=== PATIENT | male | born 1965 | race Caucasian/White ===

== ENCOUNTER 2017-08-04 14:03 | Outpatient (CLI) | payer OTHER ==
[2017-08-04 15:13] LABS: Hemoglobin 16.6 g/dL (14.0-18.0); Mean Corpuscular HGB CONC 33.6 g/dL (32.0-36.0); Mean Corpuscular Hemoglobin 30.9 pg (27.0-31.0); Mean Platelet Volume 8.4 fL (7.4-10.4); Platelet Count 168 thou/uL (130-400); Red Blood Cell (RBC) Count 5.37 mill/uL (4.70-6.10); White Blood Cell (WBC) Count 7.1 thou/uL (4.8-10.8)
--- NOTE | 2017-08-04 15:13 | RAD ---
CHEST TWO VIEWS: History: Chest pain. FINDINGS: No comparison. Cardiac silhouette and pulmonary vasculature are unremarkable. Linear atelectasis proj ects over the left base. No lobar consolidation or evidence of pneumothorax. IMPRESSION: No active cardiopulmonary abnormalities are demonstrated. POS: [facility]
[2017-08-04 15:20] LABS: PTT 28.6 SEC (22.9-36.1); Prothrombin Time 13.6 SEC (12.0-14.7)
[2017-08-04 15:29] LABS: ALT (SGPT) 24 U/L (8-55); AST (SGOT) 14 U/L (5-34); Alkaline Phosphatase 64 U/L (40-150); Anion Gap 11 mmol/L (10-20); BUN (Urea Nitrogen) 26 mg/dL (8.4-25.7); Bilirubin, Total 0.6 mg/dL (0.2-1.2); Calc. Creatinine Clearance 0 mL/min (70-130); Calcium 9.3 mg/dL (7.8-10.44); Carbon Dioxide 25 mmol/L (22-29); Chloride 108 mmol/L (98-107); Estimated GFR-MDRD 80; Globulin 2.5 g/dL (2.4-3.5); Glucose 149 mg/dL (70-105); Potassium 4.6 mmol/L (3.5-5.1); Protein, Total 6.5 g/dL (6.0-8.3); Sodium 139 mmol/L (136-145)
--- NOTE | 2017-08-07 13:24 | EKG ---
Test Reason : Blood Pressure : / mmHG Vent. Rate : 071 BPM Atrial Rate : 071 BPM P-R Int : 198 ms QRS Dur : 096 ms QT Int : 360 ms P-R-T Axes : 042 058 -07 degrees QTc Int : 391 ms Normal sinus rhythm Cannot rule out Anterior infarct (cited on or before 12-JUN-2015) T wave abnormality, consider inferior ischemia Abnormal ECG Confirmed by LEANNA TERRAZAS ([id number]) on 08/07/2017 1:24:27 PM Referred By: MIKIE Confirmed By:LEANNA TERRAZAS
== END 2017-08-04 14:04 | disposition home or self-care (01) ==
LOC: LABBT 14:03
PROVIDERS: ATTEND Internal Medicine Cardiovascular Disease
DX: Z01.818 Encounter for other preprocedural examination (principal); I34.0 Nonrheumatic mitral (valve) insufficiency
CPT/HCPCS: 71046; 80053; 85027; 85610; 85730; 93005; 93010

== ENCOUNTER → 2017-08-15 | Day surgery (SDC) | payer OTHER ==
[2017-08-04 14:29] VITALS: BMI 33.0
[~2017-08-15] MED LIST: Fentanyl 100 MCG/2 ML VIAL ONE; Heparin 10,000 UNITS/1 ML VIAL ONE; Iopamidol 370 76% 100 ML VIAL ONE; Iopamidol 370 76% 50 ML VIAL FS ONE; Lidocaine 1% (PF) 30 ML VIAL ONE; Midazolam HCl 2 mg/2 ml Vial ONE; Protamine Sulfate 50 MG/5 ML VIAL ONE
== END ==
LOC: CCL 06:18
PROVIDERS: ATTEND Internal Medicine Cardiovascular Disease
DX: I34.0 Nonrheumatic mitral (valve) insufficiency (principal); I34.1 Nonrheumatic mitral (valve) prolapse; I10 Essential (primary) hypertension; E78.00 Pure hypercholesterolemia, unspecified; E11.9 Type 2 diabetes mellitus without complications; Z79.84 Long term (current) use of oral hypoglycemic drugs; Z79.899 Other long term (current) drug therapy
CPT/HCPCS: 85347; 93460; 99152; C1769; J1644; J2001; J2250; J2720; J3010

== ENCOUNTER 2017-08-22 20:04 | Emergency (ER) | payer OTHER, SELFPAY ==
--- NOTE | 2017-08-22 21:00 | RAD ---
CHEST ONE VIEW: 08/22/17 HISTORY: Chest pain. COMPARISON: None. FINDINGS: Heart size is upper limits of normal. No focal air space consolidation, pneumothorax or effusion. No acute osseous abnormality. IMPRESSION: Cardiac size upper limits of normal. POS: [facility]
[2017-08-22 21:08] LABS: #Basophils 0.1 thou/uL (0.0-0.2); #Eosinphils 0.4 thou/uL (0.0-0.7); #Lymphocytes 1.6 thou/uL (1.20-3.40); #Monocytes 0.9 thou/uL (0.11-0.59); #Neutrophils 5.8 thou/uL (1.40-6.50); %Basophils 0.8 % (0.0-1.0); %Eosinophils 4.9 % (0.0-10.0); %Lymphocytes 17.8 % (21.0-51.0); %Monocytes 10.5 % (0.0-10.0); Hemoglobin 16.7 g/dL (14.0-18.0); Mean Corpuscular HGB CONC 33.6 g/dL (32.0-36.0); Mean Corpuscular Hemoglobin 30.8 pg (27.0-31.0); Mean Corpuscular Volume 91.5 fl (80.0-94.0); Mean Platelet Volume 8.2 fL (7.4-10.4); Platelet Count 159 thou/uL (130-400); RBC Distribution Width 12.1 % (11.5-14.5); Red Blood Cell (RBC) Count 5.43 mill/uL (4.70-6.10); White Blood Cell (WBC) Count 8.8 thou/uL (4.8-10.8)
[2017-08-22 21:16] LABS: PTT 24.1 SEC (22.9-36.1); Prothrombin Time 13.4 SEC (12.0-14.7)
[2017-08-22 21:24] LABS: ALT (SGPT) 35 U/L (8-55); AST (SGOT) 25 U/L (5-34); Albumin 4.1 g/dL (3.5-5.0); Alkaline Phosphatase 67 U/L (40-150); Anion Gap 8 mmol/L (10-20); BUN (Urea Nitrogen) 24 mg/dL (8.4-25.7); Bilirubin, Total 0.6 mg/dL (0.2-1.2); CK (CPK) 85 U/L (30-200); Calc. Creatinine Clearance 0 mL/min (70-130); Calcium 9.1 mg/dL (7.8-10.44); Carbon Dioxide 26 mmol/L (22-29); Chloride 106 mmol/L (98-107); Estimated GFR-MDRD Greater than 90; Globulin 2.9 g/dL (2.4-3.5); Glucose 110 mg/dL (70-105); Potassium 4.1 mmol/L (3.5-5.1); Sodium 136 mmol/L (136-145)
[2017-08-22 21:28] LABS: CKMB 1.8 ng/mL (0-6.6); Troponin I Less than 0.010 ng/mL (< 0.028)
== END 2017-08-22 22:33 | disposition home or self-care (01) ==
LOC: ERS 20:04
DX: R55 Syncope and collapse (principal); Z79.84 Long term (current) use of oral hypoglycemic drugs; Z79.899 Other long term (current) drug therapy
CPT/HCPCS: 71045; 80053; 82553; 83880; 84484; 85025; 85610; 85730; 93005

== ENCOUNTER 2017-11-13 11:15 | Inpatient (IN) | payer OTHER ==
[2017-11-13 12:49] LABS: Hemoglobin 16.1 g/dL (14.0-18.0); Mean Corpuscular HGB CONC 32.6 g/dL (32.0-36.0); Mean Corpuscular Hemoglobin 30.2 pg (27.0-31.0); Mean Corpuscular Volume 92.6 fL (78.0-98.0); Mean Platelet Volume 8.5 fL (7.4-10.4); Platelet Count 152 thou/uL (130-400); RBC Distribution Width 11.9 % (11.5-14.5); Red Blood Cell (RBC) Count 5.33 mill/uL (4.70-6.10); White Blood Cell (WBC) Count 6.8 thou/uL (4.8-10.8)
[2017-11-13 12:58] LABS: PTT 28.2 SEC (22.9-36.1); Prothrombin Time 13.1 SEC (12.0-14.7)
[2017-11-13 13:06] LABS: Anion Gap 14 mmol/L (10-20); BUN (Urea Nitrogen) 26 mg/dL (8.4-25.7); Calc. Creatinine Clearance 0 mL/min (70-130); Calcium 9.7 mg/dL (7.8-10.44); Carbon Dioxide 23 mmol/L (22-29); Chloride 107 mmol/L (98-107); Estimated GFR-MDRD 70; Glucose 205 mg/dL (70-105); Potassium 4.3 mmol/L (3.5-5.1); Sodium 140 mmol/L (136-145)
[2017-11-14] MEDS ORDERED: Vancomycin HCl 1.5 GM in Sodium Chloride 0.9% 250 ML 300 ML IVPB SCH (06:45)
[2017-11-14] MEDS ORDERED: Heparin 10,000 UNITS/1 ML VIAL 30,000 UNITS in Sodium Chloride 0.9% 1,000 ML FS SCH (07:15)
[2017-11-14] MEDS ORDERED: Potassium Chloride 60 MEQ/30 ML VIAL ONE (10:04)
[2017-11-14] MEDS ORDERED: Thrombin 5000 UNITS/5 ML VIAL ONE (10:04)
[2017-11-14] MEDS ORDERED: Nitroglycerin 50 MG/250 ML BOT ONE (10:04)
[2017-11-14] MEDS ORDERED: Protamine Sulfate 250 MG/25 ML VIAL ONE (10:04)
[2017-11-14] MEDS ORDERED: Sodium Bicarb 50 MEQ/50 ML VIAL ONE (10:04)
[2017-11-14] MEDS ORDERED: Norepinephrine 4 MG/4 ML VIAL ONE (10:04)
[2017-11-14] MEDS ORDERED: PROPOFOL 200 MG/20 ML VIAL ONE (10:04)
[2017-11-14] MEDS ORDERED: Mannitol 12.5 GM/50 ML ONE (10:04)
[2017-11-14] MEDS ORDERED: Vecuronium 10 MG VIAL ONE (10:04)
[2017-11-14] MEDS ORDERED: Calcium Chloride 1 GM/10 ML Abboject SYRINGE ONE (10:04)
[2017-11-14] MEDS ORDERED: Heparin 30,000 units/30 ml VIAL ONE (10:04)
[2017-11-14] MEDS ORDERED: PHENYLEPHRINE-NS 100 MCG/ML 10 ML SYRINGE ONE (10:04)
[2017-11-14] MEDS ORDERED: Lidocaine 2% PF 100 mg/5 ml Syringe ONE (10:04)
[2017-11-14] MEDS ORDERED: Aminocaproic Acid 5 GM/20 ML VIAL ONE (10:04)
[2017-11-14] MEDS ORDERED: ePHEDrine/0.9% NaCl/PF SYRINGE 50 mg/10 ml ONE (10:04)
[2017-11-14] MEDS ORDERED: Esmolol 100 MG/10 ML VIAL ONE (10:04)
[2017-11-14] MEDS ORDERED: Magnesium 5 GM/10 ML VIAL ONE (10:04)
[2017-11-14] MEDS ORDERED: Amiodarone HCl 450 MG, Admixture Fee 1 EACH in Dextrose 5% in Water 250 ML IVPB ONE (11:30)
[2017-11-14] MEDS ORDERED: Fentanyl 100 MCG/2 ML VIAL SLOW IVP PRN ×2 (12:23)
[2017-11-14] MEDS ORDERED: Bisacodyl 10 MG SUPP PR PRN (12:23)
[2017-11-14] MEDS ORDERED: Bisacodyl 5 MG TAB PO PRN (12:23)
[2017-11-14] MEDS ORDERED: Acetaminophen 325 MG TAB PO PRN (12:23)
[2017-11-14] MEDS ORDERED: hydrALAZINE 20 MG/ML VIAL SLOW IVP PRN (12:23)
[2017-11-14] MEDS ORDERED: Ondansetron HCl/PF 4 MG/2 ML Vial IVP PRN (12:23)
[2017-11-14] MEDS ORDERED: Mag-Al 1200 mg/1200 mg/30 ML UDCUP PO PRN (12:23)
[2017-11-14] MEDS ORDERED: Hetastarch 6% 500 ML 500 ML IVPB PRN (12:23)
[2017-11-14] MEDS ORDERED: Promethazine HCl 25 MG/ML VIAL IM PRN (12:23)
[2017-11-14] MEDS ORDERED: Nitroglycerin 50 MG/250 ML BOT 250 ML IVPB PRN (12:23)
[2017-11-14] MEDS ORDERED: Guaifenesin DM 100-10/5 ML UDCUP PO PRN (12:23)
[2017-11-14] MEDS ORDERED: Post-Op Insulin Drip Protocol IVPB ONE (12:23)
[2017-11-14] MEDS ORDERED: Norepinephrine 8 MG/0.9% NS 250 ML IVPB PRN (12:23)
[2017-11-14] MEDS ORDERED: Amiodarone In Dextrose 200 ML IVPB SCH (12:30)
[2017-11-14] MEDS ORDERED: Dextrose 50% Abboject 50 ML SYRINGE SLOW IVP PRN (12:33)
[2017-11-14] MEDS ORDERED: Dextrose 5% in Water 1,000 ML IV PRN (12:33)
[2017-11-14] MEDS ORDERED: Magnesium Sulfate 2 GM in Sodium Chloride 0.9% 100 ML IVPB SCH (12:45)
[2017-11-14 12:53] LABS: Actual Bicarbonate (HCO3a) 22.8 mEq/L (22-28); Base Excess (BEa) -2.7 mEq/L (-2.0 to +3.0); CO2 Tension 41.9 mmHg (35.0-45.0); Hemoglobin (Hb) 15.1 g/dL (14.0-18.0); pH, Arterial 7.35 (7.35-7.45)
[2017-11-14 12:54] LABS: Hemoglobin 14.9 g/dL (14.0-18.0); Mean Corpuscular HGB CONC 33.9 g/dL (32.0-36.0); Mean Corpuscular Hemoglobin 31.3 pg (27.0-31.0); Mean Corpuscular Volume 92.3 fL (78.0-98.0); Platelet Count 143 thou/uL (130-400); RBC Distribution Width 11.9 % (11.5-14.5); Red Blood Cell (RBC) Count 4.75 mill/uL (4.70-6.10); White Blood Cell (WBC) Count 27.9 thou/uL (4.8-10.8)
[2017-11-14 12:54] LABS: ALV-art Gradient 262.425 (0-20); Puncture Site ART LINE
[2017-11-14 12:55] LABS: INR-International Normal Ratio 1.2; PTT 29.1 SEC (22.9-36.1); Prothrombin Time 15.7 SEC (12.0-14.7)
[2017-11-14] MEDS: D5 1/2 NS w/20 mEq KCL 1,000 ML IV SCH (13:06)
[2017-11-14 13:07] LABS: Anion Gap 11 mmol/L (10-20); BUN (Urea Nitrogen) 24 mg/dL (8.4-25.7); Calc. Creatinine Clearance 142 mL/min (70-130); Calcium 6.9 mg/dL (7.8-10.44); Carbon Dioxide 23 mmol/L (22-29); Chloride 114 mmol/L (98-107); Estimated GFR-MDRD 89; Glucose 160 mg/dL (70-105); Potassium 4.3 mmol/L (3.5-5.1); Sodium 144 mmol/L (136-145)
[2017-11-14] MEDS: Clindamycin/D5W 900 MG in Premix Bag 1 BAG IVPB SCH ×2 (13:14→19:23)
[2017-11-14 13:15] LABS: Band 13 % (5-11); Eosinophils 1 % (0-10); Lymphocytes 4 % (21-51); MDiff Complete? YES; Monocytes 3 % (0-10); Neutrophil 77 % (42-75); PLT Morphology Comment Appears Adequate; RBC Morphology Normal; Reactive Lymphocytes 2 % (0-10)
--- NOTE | 2017-11-14 13:31 | OP ---
DATE OF OPERATION: 11/14/2017 PREOPERATIVE DIAGNOSIS: Severe mitral regurgitation. POSTOPERATIVE DIAGNOSIS: Severe mitral regurgitation. PROCEDURES: 1. Mitral valve repair with a quadrangular resection and #34 Borges mitral ring. 2. Ligation of left atrial appendage. SURGEON: Dr. Chi Doe and Dr. Ketan Ortiz. ANESTHESIA: General endotracheal - Dr. John Elliott. PUMP TIME: 99 minutes. CROSS-CLAMP TIME: 73 minutes. LOW CORE TEMP: 32-degree Celsius. BAG ADJUSTER: Maryuri Yan. DRAINS: 24-Urdu chest tubes x2. DRIPS: Levophed at 5 mcg/kg per minute, amiodarone, and insulin. TRANSFUSIONS: None. DESCRIPTION OF PROCEDURE: After consent was obtained, the patient was brought to the operating room and placed in the supine position on the operating room table. Appropriate anesthetic monitor was pl aced and general endotracheal anesthesia induced. Chest, abdomen, and legs were prepped and draped i n usual sterile fashion. Median sternotomy was performed. Pericardium was incised. Pericardial sta y sutures were placed. The patient was systemically heparinized. Atrial and bicaval cannulation was performed. After adequate heparinization, retrograde prime was performed. The patient was placed o n cardiopulmonary bypass. Caval tapes were placed and tightened. A left ventricular sump drain was placed in the right superior pulmonary vein. Aortic cross-clamp was applied and antegrade sanguinous cardioplegic arrest obtained. One liter of antegrade cold cardioplegia was given. Topical cold jase ution was used. Carbon dioxide was infused in the pericardial wall throughout the open portion of the procedure. Waterston's groove was developed. Left atriotomy was then performed and extended underneath the supe rior and inferior vena cava. Rich mitral retractor was placed and retraction performed to inspec t the mitral valve. On inspection, there was a flail P2 chordee with a patulous P2 segment. The ant erior leaflet was intact. P1 and P3 were intact. The left atrial appendage was then ligated with a 4-0 Prolene pursestring from the inside of the left atrium. Trigonal sutures were placed and the anterior leaflet measured at 34. Quadrangular resection was then performed, resecting the P2 segment. The annulus was reapproximated with a pledgeted 4-0 Prolene suture. Unpledgeted 2-0 Ethibond sutures were placed around the annulus . These were then passed through the ring and the ring was secured. Once the ring was secured, the leaflet edges were brought back together and reapproximated with running 5-0 Prolene suture. Valve w as tested and there was a small central jet at the leaflet edge around the area of the quadrangular r esection. There was no large leaflet non-apposition. Atriotomy was closed in a running fashion with 4-0 Prolene suture in a dual layer fashion. De-airing maneuvers were then performed. The patient w as placed in Trendelenburg position and cross-clamp removed. The patient was warmed and weaned from cardiopulmonary bypass. Atrial and ventricular pacing wires were placed. Once the temperature was g reater than 36.5, good hemodynamics had been obtained and the patient was weaned and bypass was disco ntinued. The valve was inspected with ANAY and found to coapt throughout its length. There was a sma ll central jet resulting in mild mitral regurgitation. Protamine was administered. Decannulation wa s performed and pursestring sutures secured. The aortic cannulation site was reinforced with 4-0 Pro lefty pledgeted suture. The antegrade cardioplegia needle was removed and its pursestring sutures sec ured. The left ventricular sump drain was removed and its pursestring sutures secured. After adequa te hemostasis had been obtained, 24-Urdu chest tubes were placed and secured to the skin. The ster num was treated with vancomycin paste. Hemostasis was adequate and the sternum was closed with #7 wi re. Sternum was treated with platelet-rich plasma and wires twisted. Wounds irrigated, treated with platelet-poor plasma. During closure of the subcutaneous tissue, the patient's ST segments elevated . The patient then fibrillated. The sternotomy was reopened. The patient was defibrillated. The p atient was given lidocaine and amiodarone bolus dose. The patient converted back into sinus rhythm a nd was paced for a short period of time prior to discontinuing the pacemaker. Amiodarone drip was st arted. There were no further rhythm disturbances. This was attributed to an air bolus. Myocardium was inspected and there was no ischemic myocardium. Using ANAY, again the ventricle and mitral valve repair were inspected and were as per previously noted. After approximately an hour in the operating room of the sternum opened, we elected to reclose. Ster num was reclosed with #7 wire. Wounds were irrigated, treated with platelet-rich plasma and platelet -poor plasma, and closed in layers. Dermabond was applied to the skin. The patient was transferred to the intensive care unit in stable condition. Needle, sponge, and instrument counts were all repor saritha correct at the end of the procedure.
--- NOTE | 2017-11-14 14:36 | RAD ---
PORTABLE CHEST 1 VIEW: Date: 11/14/17 Time: 1150 hours HISTORY: Postop open heart surgery. Respiratory failure. FINDINGS/IMPRESSION: Comparison made with exam of 08/22/17. Interval changes of median sternotomy are seen. There is an endotracheal tube with tip below the leve l of the clavicular heads. There is a right subclavian central line with tip in the projection of the cavoatrial junction. Chest tubes are present. There is atelectatic change at the left lung base. No pneumothoraces or sim pulmonary edema are identified. Small effusions cannot be excluded. POS: [facility]
[2017-11-14 15:46] LABS: Actual Bicarbonate (HCO3a) 22.3 mEq/L (22-28); Base Excess (BEa) -2.3 mEq/L (-2.0 to +3.0); CO2 Tension 37.8 mmHg (35.0-45.0); O2 Tension (PaO2) 101.5 mmHg (80.0-100.0); pH, Arterial 7.39 (7.35-7.45)
[2017-11-14 15:47] LABS: Hemoglobin (Hb) 14.6 g/dL (14.0-18.0)
[2017-11-14 15:48] LABS: Puncture Site A-LINE
[2017-11-14] MEDS: Ketorolac Tromethamine 30 MG/ML VIAL IVP SCH (17:00)
[2017-11-14] MEDS: Calcium Gluconate 4.6 MEQ in Sodium Chloride 0.9% 100 ML IVPB SCH ×2 (17:01→20:28)
[2017-11-14 18:35] LABS: Hemoglobin 14.1 g/dL (14.0-18.0)
[2017-11-14] MEDS: HYDROcodone/Acetaminophen 5/325 mg Tablet PO PRN ×2 (18:38→21:15)
[2017-11-14] MEDS: Amiodarone HCl 450 MG, Admixture Fee 1 EACH in Dextrose 5% in Water 250 ML IVPB SCH (18:43)
[2017-11-14 18:57] LABS: Potassium 4.3 mmol/L (3.5-5.1)
[2017-11-14] MEDS: Vancomycin HCl 1 GM in Premix Bag 1 BAG IVPB SCH (20:28)
[2017-11-14] MEDS ORDERED: Famotidine/PF 20 mg/2ml Vial SLOW IVP SCH (21:00)
--- NOTE | 2017-11-14 22:56 | CON ---
DATE OF CONSULTATION: 11/14/2017 SERVICE: Pulmonary Medicine. REASON FOR CONSULTATION: Respiratory failure. HISTORY OF PRESENT ILLNESS: The patient is a 52-year-old white male with past medical history significant for mitral regurgitation. He was having active dyspnea on exertion associated with the same. As such, he underwent mitral regurgitation. He is postop day #0 and is currently on mechanical ventilation. He has significant chest discomfort. He is on a spontaneous breathing trial. Otherwise, there has been no interval change to his condition. The procedure went without complication and he was taken off pump. He ended up having a brief episode of ventricular tachycardia. He was briefly but opened "back on pump and cardioverted" shortly following cardioversion. No additional repairs were required. He was subsequently closed. Since then, his postop course has been unremarkable. He denies any current fevers. Actually, he cannot provide any additional elements of the history. PAST MEDICAL HISTORY: 1. Mitral regurgitation, status post repair, postop day 0. 2. Hypertension. 3. Dyslipidemia. 4. Type 2 diabetes mellitus. PAST SURGICAL HISTORY: 1. Mitral valve repair, postop day 0. 2. Colonoscopy x2. 3. Hemorrhoidectomy. 4. Bilateral hernia repair. SOCIAL HISTORY: Negative for significant alcohol, tobacco or illicit drug use currently. FAMILY HISTORY: Noncontributory. ALLERGIES: PENICILLIN, CAFFEINE, SODIUM BENZOATE. HOME MEDICATIONS: Lists of inpatient medications were reviewed. No specific updates were made at this time. REVIEW OF SYSTEMS: General, head, ears, eyes, nose, throat, cardiovascular, respiratory, GI, , musculoskeletal, neurologic and skin is negative except as mentioned in the HPI. PHYSICAL EXAMINATION: VITAL SIGNS: Afebrile, pulse 70, blood pressure 98/49, respirations 21, saturation 96% on 40% FIO2 and a PEEP of 5. GENERAL: The patient is intubated. The sedation is wearing off. He appeared to be in mild distress associated with chest discomfort. HEENT: Normocephalic, atraumatic. Sclerae are white, conjunctivae pink. Oral mucosa is moist without lesions. LUNGS: Excellent air entry. There are rhonchi present. There are no crackles or wheezing appreciated. HEART: Normal rate, regular. ABDOMEN: Soft, nontender and nondistended. Bowel sounds are positive. MUSCULOSKELETAL: No cyanosis or clubbing. There is no pitting in the bilateral lower extremities. NEUROLOGIC: Grossly nonfocal. EQUIPMENTS: Including A wire, V wire, mediastinal drain, left-sided chest tube , Haynes catheter, endotracheal tube, right subclavian central venous catheter, radial outline. LABORATORY DATA: WBC 27.9, immediately postop. CBC is otherwise unremarkable with hemoglobin of 15.0. Band count 13%. INR 1.2. PH 7.39, pCO2 38, pO2 101. Ionized calcium is 1.0. Chloride 114. Basic metabolic profile is otherwise unremarkable. IMAGING DATA: Chest x-ray demonstrates mediastinal drain and left chest tube. His endotracheal tube is in good position. New sternotomy wires and mitral annulus are identified. There is likely atelectasis of the left lower lobe. ASSESSMENT: 1. Acute hypoxic respiratory failure, improving. 2. Mitral regurgitation, status post repair, postop day 0. 3. Type 2 diabetes mellitus. DISCUSSION AND PLAN: We will continue our routine postop care. We will wean oxygen and ventilator support as tolerated. Once he wakes up from sedation, he will put him on a spontaneous breathing trial. If he meets criteria, extubation will be considered. Pulmonary or Critical Care will continue to follow while the patient remains in this location. Critical care time: 30 minutes. CHARLID
[2017-11-15] MEDS: Clindamycin/D5W 900 MG in Premix Bag 1 BAG IVPB SCH ×2 (00:16→05:58)
[2017-11-15] MEDS: Ketorolac Tromethamine 30 MG/ML VIAL IVP SCH ×5 (00:16→23:28)
--- NOTE | 2017-11-15 03:01 | CON ---
HISTORY: Dilshad Rosario is a 52-year-old white male with severe mitral regurgitation that I initially evaluated in 12/2012. At that time, he complained of palpitations with finding of a heart rate of 175-180 on a home monitor. Echo at that time revealed normal ejection fraction with moderate mitral regurgitation. On 30-day monitor, he did not have any recurrence of his very rapid heartbeat and would only at times have sinus tachycardia. He did not return again until 05/2014. He continued to complain of heart rate going to 170 per minute if he would run fast for one mile. He also has been breathing very hard with that. Echo at that time revealed moderate to severe mitral regurgitation and prolapse of the posterior leaflet. He was placed on metoprolol 50 daily for episodes of heart rate to 170 per minute by his account , although these were not documented on the previous 30-day monitor. Again, he returned for followup in 08/2014, he did not have any further recurrence of his rapid heartbeat, although he was somewhat fatigued on the metoprolol. He was placed on a trial of Bystolic and his fatigue was much better with that, however he ultimately went back to Metoprolol. In 06/2015, he complained of shortness of breath with jogging, but no dyspnea on exertion with exercise on a bicycle. In 03/2016, he was started on atorvastatin 20 mg daily for an LDL of 125 in a diabetic. In 07/2016, it was noted that his left ventricular diastolic size increased from 6.2 to 6.8. It is recommended that he undergo transesophageal echo. This was performed on 08/17/[address] Bautista. He was found to have normal left ventricular systolic function with biatrial enlargement, left ventricle is mildly dilated, prolapse of the posterior leaflet of the mitral valve, moderate to severe mitral regurgitation, mild tricuspid regurgitation. With him having dyspnea during his 3-mile walk and that this may have been getting worse over time as well as finding of left ventricle being dilated, it was recommended he undergo cardiac catheterization. He had problems with scheduling this at work and took a year before he would come for catheterization. During that time, waiting for catheterization, he was placed on low dose furosemide 20 mg daily. With diuretics, his left ventricular size felt 6.1 cm; however, in 02/2017, it increased to 6.7 cm. Again, it was recommended that he undergo catheterization, but I could not get him to agree to come until March. However, he again did not come for catheterization. In 07/2017, he came to the office and stated that he gone to [place] deciding that he wanted minimally invasive mitral valve replacement or repair. He saw Dr. Noel who wanted to have his catheterization here. He continued to get dyspnea on exertion after walking up two flights of stairs or carrying anything over 30 pounds. He underwent cardiac catheterization on 08/15/2017. He had normal coronary arteries, ejection fraction of 50%-55% and severe mitral regurgitation. Apparently his insurance would not allow him to go to [place] and he decided to have surgery done here. It has taken him another 3 months to decide to have surgery. He now has undergone mitral valve repair by Dr. Doe with placement of mitral annuloplasty ring and ligation of the left atrial appendage. At the present time, he does not complain of any significant breathing difficulties. PAST MEDICAL HISTORY: Hypertension, hypercholesterolemia, severe mitral regurgitation, diabetes. OPERATIONS: Hernia repair and now mitral valve repair with annuloplasty ring and left atrial appendage ligation. MEDICATIONS: Atorvastatin 20 at bedtime, metformin 500 q.p.m., metoprolol 50 at bedtime, potassium 99 mg at bedtime. ALLERGIES: CAFFEINE, PENICILLIN, SODIUM BENZOATE. SOCIAL HISTORY: He does not smoke or drink. REVIEW OF SYSTEMS: Twelve point review of systems is unremarkable. PHYSICAL EXAMINATION: VITAL SIGNS: 110/70, pulse of 80, sinus rhythm. HEENT: PERRL. NECK: Supple. CHEST: Clear. CARDIAC: S1 and S2 are normal, without any S3, or S4 or murmurs. ABDOMEN: Normal bowel sounds, without tenderness, organomegaly. EXTREMITIES: Revealed no clubbing, cyanosis or edema. NEUROLOGIC: Grossly intact postoperatively. SKIN: Warm and dry. LABORATORY DATA: Hemoglobin 14.1, hematocrit 41.3. A pH 7.39, pCO2 of 37.8, pO2 101.5, sodium 144, potassium 4.3, chloride 114, carbon dioxide 23, BUN 24, creatinine 0.89. His last LDL was in 09/2017 and was 66 in a diabetic. IMPRESSION: 1. Status post mitral valve repair with placement of the mitral annuloplasty ring and left atrial appendage ligation. 2. Normal coronary arteries. 3. Hypertension. 4. Hypercholesterolemia. 5. Diabetes. PLAN: The patient will continue postoperative care. Beta ganesh will be resumed as soon as possible. VERONICA
[2017-11-15 04:43] LABS: Anion Gap 11 mmol/L (10-20); BUN (Urea Nitrogen) 18 mg/dL (8.4-25.7); Calc. Creatinine Clearance 159 mL/min (70-130); Calcium 7.6 mg/dL (7.8-10.44); Carbon Dioxide 22 mmol/L (22-29); Chloride 110 mmol/L (98-107); Estimated GFR-MDRD Greater than 90; Glucose 140 mg/dL (70-105); Potassium 3.9 mmol/L (3.5-5.1); Sodium 139 mmol/L (136-145)
[2017-11-15 05:03] LABS: #Monocytes 1.7 thou/uL (0.11-0.59); #Neutrophils 10.6 thou/uL (1.40-6.50); %Basophils 0.2 % (0.0-1.0); %Eosinophils 0.2 % (0.0-10.0); %Lymphocytes 7.5 % (21.0-51.0); %Neutrophils 79.2 % (42.0-75.0); Mean Corpuscular HGB CONC 34.4 g/dL (32.0-36.0); Mean Corpuscular Volume 92.8 fL (78.0-98.0); Mean Platelet Volume 8.1 fL (7.4-10.4); Platelet Count 120 thou/uL (130-400); RBC Distribution Width 12.1 % (11.5-14.5); Red Blood Cell (RBC) Count 4.06 mill/uL (4.70-6.10); White Blood Cell (WBC) Count 13.3 thou/uL (4.8-10.8)
[2017-11-15] MEDS: Potassium Chloride 20 MEQ/100 ML PREMIX BAG IVPB PRN (06:07)
[2017-11-15] MEDS ORDERED: Insulin Regular 300 UNITS/3 ML VIAL SC PRN (06:20)
[2017-11-15] MEDS ORDERED: Insulin Glargine 30 UNITS in Pre-Filled Syringe 1 EACH SC SCH (06:30)
[2017-11-15] MEDS: HYDROcodone/Acetaminophen 5/325 mg Tablet PO PRN ×3 (07:55→21:34)
--- NOTE | 2017-11-15 08:33 | RAD ---
PORTABLE CHEST: Date: 11/15/17 HISTORY: Postop sternotomy. COMPARISON: 11/14/17. FINDINGS/IMPRESSION: Cardiomegaly with postop sternotomy change. Prosthetic heart valve. ET tube has been removed. Central line is unchanged, with tip overlying SVC. CP angles are obscured consistent with small bilateral effusions, probably larger on the left, with a ssociated left basilar atelectasis. The upper lung gardner remain clear. POS: [facility]
[2017-11-15] MEDS: Magnesium Sulfate 2 GM in Sodium Chloride 0.9% 100 ML IVPB SCH (08:37)
[2017-11-15] MEDS: Aspirin 325 MG TAB PO SCH (08:37)
[2017-11-15] MEDS: Vancomycin HCl 1 GM in Premix Bag 1 BAG IVPB SCH (08:37)
[2017-11-15] MEDS: Insulin Regular 300 UNITS/3 ML VIAL SC PRN ×4 (10:57→23:31)
[2017-11-15] MEDS: Amiodarone HCl 450 MG, Admixture Fee 1 EACH in Dextrose 5% in Water 250 ML IVPB SCH (10:58)
[2017-11-15] MEDS: D5 1/2 NS w/20 mEq KCL 1,000 ML IV SCH (12:07)
--- NOTE | 2017-11-15 16:58 | PRG ---
DATE OF SERVICE: 11/15/2017 SERVICE: Pulmonary Medicine. INTERVAL HISTORY: The patient really doing quite well from a respiratory standpoint. He indicates t hat he is less congested today. He is having less chest discomfort, although he still continues to h ave some pleuritic discomfort. He is not having as much shortness of breath. Otherwise, things are moving in the right direction. Levophed drip is off, amiodarone drip is off. PHYSICAL EXAMINATION: VITAL SIGNS: Afebrile, pulse 74, blood pressure 113/69, respirations 20, saturation 93% on 2 liters nasal cannula. GENERAL: The patient is awake, alert, no apparent distress. LUNGS: Excellent air entry. There is no prolonged expiratory phase. There are some crackles presen t in the left base. No rhonchi or wheezing are appreciated. HEART: Normal rate, regular. ABDOMEN: Soft, nontender and nondistended. Bowel sounds are positive. MUSCULOSKELETAL: No cyanosis or clubbing. No pitting in the bilateral lower extremities. NEUROLOGIC: Grossly nonfocal. LABORATORY DATA: WBC down trending to 13.3, hemoglobin 13.0, platelets 120,000. INR 1.2, blood suga r ranges from 135-242. IMAGING DATA: Chest x-ray demonstrates mediastinal drain, left-sided thoracostomy drain is in good p osition and unchanged. Sternotomy wires are noted. There is also mitral annular hyperlucency. Ther e is volume loss in the left lung base. ASSESSMENT: 1. Acute hypoxic respiratory failure, improving. 2. Likely atelectasis of the left lower lobe. 3. Mitral regurgitation, status post repair, postop day 1. 4. Type 2 diabetes mellitus. 5. Obstructive sleep apnea, suspected. DISCUSSION AND PLAN: Postoperative supportive care will be continued. We will continue our mobiliza tion efforts as best as tolerated. Pulmonary or Critical Care will continue to follow while he remai ns in the ICU. In the outpatient setting, the patient would like to pursue a polysomnogram to evalua te for obstructive sleep apnea.
[2017-11-15] MEDS: Atorvastatin Calcium 20 MG TAB PO SCH (20:03)
[2017-11-15] MEDS: metFORMIN XR 500 MG TAB PO SCH (20:03)
[2017-11-16 04:58] LABS: #Eosinphils 0.2 thou/uL (0.0-0.7); #Lymphocytes 1.4 thou/uL (1.20-3.40); #Monocytes 1.4 thou/uL (0.11-0.59); #Neutrophils 8.8 thou/uL (1.40-6.50); %Basophils 0.2 % (0.0-1.0); %Eosinophils 1.6 % (0.0-10.0); %Lymphocytes 11.5 % (21.0-51.0); %Monocytes 11.8 % (0.0-10.0); %Neutrophils 74.9 % (42.0-75.0); Hemoglobin 11.5 g/dL (14.0-18.0); Mean Corpuscular HGB CONC 33.4 g/dL (32.0-36.0); Mean Corpuscular Hemoglobin 31.2 pg (27.0-31.0); Mean Corpuscular Volume 93.3 fL (78.0-98.0); Mean Platelet Volume 8.3 fL (7.4-10.4); Platelet Count 99 thou/uL (130-400); RBC Distribution Width 12.1 % (11.5-14.5); Red Blood Cell (RBC) Count 3.69 mill/uL (4.70-6.10); White Blood Cell (WBC) Count 11.8 thou/uL (4.8-10.8)
[2017-11-16 05:01] LABS: Anion Gap 9 mmol/L (10-20); BUN (Urea Nitrogen) 18 mg/dL (8.4-25.7); Calc. Creatinine Clearance 140 mL/min (70-130); Calcium 7.8 mg/dL (7.8-10.44); Carbon Dioxide 26 mmol/L (22-29); Chloride 105 mmol/L (98-107); Estimated GFR-MDRD 84; Glucose 125 mg/dL (70-105); Potassium 3.9 mmol/L (3.5-5.1); Sodium 136 mmol/L (136-145)
[2017-11-16] MEDS: Ketorolac Tromethamine 30 MG/ML VIAL IVP SCH ×3 (05:18→18:27)
[2017-11-16] MEDS: Potassium Chloride 20 MEQ/100 ML PREMIX BAG IVPB PRN (05:18)
[2017-11-16] MEDS ORDERED: Bisacodyl 10 MG SUPP PR PRN (07:32)
[2017-11-16] MEDS ORDERED: Nitroglycerin 0.4 MG TAB (25 Tab Bottle) SL PRN (07:32)
[2017-11-16] MEDS ORDERED: Mineral Oil ENEMA PR PRN (07:32)
[2017-11-16] MEDS ORDERED: Artificial Tears 18 DROP/0.9 ML EA EYE PRN (07:32)
[2017-11-16] MEDS ORDERED: diphenhydrAMINE 25 MG CAP PO PRN (07:32)
[2017-11-16] MEDS ORDERED: Zolpidem Tartrate 5 MG TAB PO PRN (07:32)
[2017-11-16] MEDS ORDERED: Mag-Al 1200 mg/1200 mg/30 ML UDCUP PO PRN (07:32)
--- NOTE | 2017-11-16 08:23 | RAD ---
PORTABLE CHEST: History: Post op sternotomy. Comparison: 11-15-17 FINDINGS: Cardiomegaly with post op sternotomy change. Left CP angle and hemidiaphragm are obscured, possibly r epresenting left basilar atelectasis or infiltrate. Lungs are otherwise clear. The central line is un changed. IMPRESSION: No significant interval change noted. POS: [facility]
[2017-11-16] MEDS: Aspirin 325 mg Enteric Coated Tablet PO SCH (08:32)
[2017-11-16] MEDS: Furosemide 40 MG TAB PO SCH (08:32)
[2017-11-16] MEDS: Amiodarone 200 MG TAB PO SCH ×2 (08:32→21:53)
[2017-11-16] MEDS: Potassium Chloride 10 MEQ TAB PO SCH (08:32)
[2017-11-16] MEDS: HYDROcodone/Acetaminophen 5/325 mg Tablet PO PRN ×2 (08:33→14:30)
[2017-11-16] MEDS: Insulin Regular 300 UNITS/3 ML VIAL SC PRN ×4 (08:34→21:15)
[2017-11-16] MEDS: Magnesium Sulfate 2 GM in Sodium Chloride 0.9% 100 ML IVPB SCH (09:36)
--- NOTE | 2017-11-16 13:01 | PRG ---
DATE OF SERVICE: 11/16/2017 SERVICE: Pulmonary Medicine. INTERVAL HISTORY: The patient is doing fine from a respiratory standpoint. He denies any current ch est pain, nausea, vomiting. His breathing is easing up a little bit. He is able to get out of bed i nto a chair today. His pleuritic chest discomfort has improved since his chest tube and mediastinal drain removed. Otherwise, there has been no interval change to his condition. PHYSICAL EXAMINATION: VITAL SIGNS: Afebrile, pulse 81, blood pressure 117/60, respirations 20, saturation 94% on room air. GENERAL: Patient is awake, alert, in no apparent distress. LUNGS: Decent air entry. There are dependent crackles present on the left. No prolonged expiratory phase or wheezing is appreciated. HEART: Normal rate, regular. ABDOMEN: Soft, nontender, nondistended. Bowel sounds are positive. MUSCULOSKELETAL: No cyanosis or clubbing. There is no pitting in the bilateral lower extremities. NEUROLOGIC: Grossly nonfocal. LABORATORY DATA: WBC 11.8, hemoglobin 11.5, platelets 99,000 and gently down trending. Basic metabo lic profile is unremarkable. Creatinine is stable at 0.94. IMAGING DATA: Chest x-ray demonstrates persistent left basilar pleural parenchymal changes, likely c onsistent with atelectasis. Thoracostomy drain and mediastinal drain is still present. The right-si ded subclavian central venous catheter is in good position. No significant interval change is presen t. ASSESSMENT: 1. Acute hypoxic respiratory failure, improving. 2. Atelectasis of the left lower lobe, suspected. 3. Mitral regurgitation, status post repair, postop day #2. 4. Type 2 diabetes mellitus. 5. Obstructive sleep apnea, suspected. DISCUSSION AND PLAN: The patient is being transitioned to the floor today. I will follow for 1 ryan tional day to see if he is off of oxygen by tomorrow. We will certainly have him follow up with us i n the outpatient setting to investigate our suspicion of sleep apnea.
[2017-11-16] MEDS: metFORMIN XR 500 MG TAB PO SCH (21:53)
[2017-11-16] MEDS: Atorvastatin Calcium 20 MG TAB PO SCH (21:54)
[2017-11-17] MEDS: Ketorolac Tromethamine 30 MG/ML VIAL IVP SCH ×4 (00:46→17:40)
[2017-11-17 05:17] VITALS: BMI 35.9
[2017-11-17] MEDS: Furosemide 40 MG TAB PO SCH (07:27)
[2017-11-17] MEDS: Aspirin 325 MG TAB PO SCH (07:29)
[2017-11-17] MEDS ORDERED: Metolazone 5 MG TAB PO SCH (07:30)
--- NOTE | 2017-11-17 07:52 | PRG ---
DATE OF SERVICE: 11/17/2017 SERVICE: Pulmonary Medicine INTERVAL HISTORY: The patient is doing fine from a respiratory standpoint. He denies chest pain, na usea, vomiting, fevers or chills. Otherwise, there has been no interval change to his condition. He is breathing comfortably. He got put back on oxygen just to rest at night, but yesterday, he was ba ck on room air. PHYSICAL EXAMINATION: VITAL SIGNS: Afebrile, pulse 79, blood pressure 120/58, respirations 16, saturation 97% on 1 liter n margie cannula currently. HEART: Normal rate, regular. ABDOMEN: Soft, nontender, nondistended. Bowel sounds are positive. MUSCULOSKELETAL: No cyanosis or clubbing. There is no pitting in the bilateral lower extremities. NEUROLOGIC: Grossly nonfocal. LABORATORY DATA: Blood sugars ranged from 128 to 181. ASSESSMENT: 1. Acute hypoxic respiratory failure, resolved. Atelectasis of the left lower lobe, likely resolved . 2. Mitral regurgitation, status post repair, postoperative day #3. 3. Type 2 diabetes mellitus. 4. Obstructive sleep apnea, suspected. DISCUSSION AND PLAN: The patient remains stable for transition to the telemetry unit. We are waitin g for a bed to open up. When he arrives on the floor, Pulmonary Critical Care will sign off. I am helen ron to have him follow up with me in clinic in the outpatient setting to set up a sleep study.
[2017-11-17] MEDS: Aspirin 325 mg Enteric Coated Tablet PO SCH (08:03)
[2017-11-17] MEDS: Potassium Chloride 10 MEQ TAB PO SCH (08:03)
[2017-11-17] MEDS: Amiodarone 200 MG TAB PO SCH ×2 (08:03→20:43)
[2017-11-17] MEDS: HYDROcodone/Acetaminophen 5/325 mg Tablet PO PRN ×2 (09:20→15:22)
[2017-11-17] MEDS: Bisacodyl 5 MG TAB PO PRN (15:22)
[2017-11-17] MEDS: Guaifenesin DM 100-10/5 ML UDCUP PO PRN (15:23)
[2017-11-17] MEDS: metFORMIN XR 500 MG TAB PO SCH (20:42)
[2017-11-17] MEDS: Atorvastatin Calcium 20 MG TAB PO SCH (20:42)
[2017-11-18] MEDS: HYDROcodone/Acetaminophen 5/325 mg Tablet PO PRN ×4 (02:14→20:16)
[2017-11-18] MEDS: Guaifenesin DM 100-10/5 ML UDCUP PO PRN ×3 (03:24→20:21)
[2017-11-18] MEDS: Potassium Chloride 10 MEQ TAB PO SCH (09:29)
[2017-11-18] MEDS: Amiodarone 200 MG TAB PO SCH ×2 (09:29→20:15)
[2017-11-18] MEDS: Aspirin 325 mg Enteric Coated Tablet PO SCH (09:29)
[2017-11-18] MEDS: Furosemide 40 MG TAB PO SCH (09:29)
[2017-11-18] MEDS: Bisacodyl 5 MG TAB PO PRN (09:33)
[2017-11-18] MEDS: Insulin Regular 300 UNITS/3 ML VIAL SC PRN ×2 (12:27→17:33)
[2017-11-18] MEDS: GARLIC 1250 MG PO SCH (15:04)
--- NOTE | 2017-11-18 16:40 | PDOC.CTH ---
Cardiology Progress Note - Subjective He had an episode of SOB overnight. He has not had a BM since surgery but is passing gas. - Objective Vital Signs Temp Pulse Pulse Pulse Resp BP BP 11/18/17 14:42 82 12 11/18/17 13:40 87 82 129/63 114/64 11/18/17 12:21 99.0 F 87 18 11/18/17 12:02 90 78 134/69 105/66 11/18/17 08:40 11/18/17 08:37 79 18 11/18/17 08:00 98.5 F 80 16 11/18/17 07:30 98.5 F 80 16 BP Pulse Ox Pulse Ox Pulse Ox 11/18/17 14:42 11/18/17 13:40 93 L 93 L 11/18/17 12:21 119/59 L 94 L 11/18/17 12:02 95 98 11/18/17 08:40 95 11/18/17 08:37 11/18/17 08:00 134/69 95 11/18/17 07:30 95 Weight 244 lb 1.6 oz 11/17/17 11/18/17 11/19/17 06:59 06:59 06:59 Intake Total 2645.1 736 Output Total 1516 1195 Balance 1129.1 -459 - Physical Examination General/Neuro: alert & oriented x3, NAD Neck: no JVD present Lungs: CTA, unlabored respirations Heart: RRR Abdomen: NT/ND Extremities: other: (no edema.) - Telemetry Telemetry Rhythm: NSR - Labs Result Diagrams: 11/16/17 03:30 11/16/17 03:30 - Assessment/Plan 1. S/P MV repair with mitral annuloplasty ring 2. S/P GEORGE ligation 3. Normal coronaries 4. Constipation 5. HTN 6. HLP 7. DMT2 8. VFib in OR, PLAN: - Will give Lactulose one dose. - Aspirin for life. - Continue Amiodarone load due to episode of VFib in OR. - Amio load total of 10,000 mg.
[2017-11-18] MEDS: Atorvastatin Calcium 20 MG TAB PO SCH (20:16)
[2017-11-18] MEDS: metFORMIN XR 500 MG TAB PO SCH (20:16)
[2017-11-19] MEDS: HYDROcodone/Acetaminophen 5/325 mg Tablet PO PRN ×2 (00:12→08:30)
[2017-11-19] MEDS: Guaifenesin DM 100-10/5 ML UDCUP PO PRN ×2 (00:18→08:37)
[2017-11-19 07:23] VITALS: BP 107/61; TEMP 98.9
[2017-11-19] MEDS ORDERED: Magnesium Citrate 300 ML BOT PO SCH (08:00)
[2017-11-19] MEDS: Potassium Chloride 10 MEQ TAB PO SCH (08:30)
[2017-11-19] MEDS: Aspirin 325 mg Enteric Coated Tablet PO SCH (08:30)
[2017-11-19] MEDS: Furosemide 40 MG TAB PO SCH (08:30)
[2017-11-19] MEDS: Amiodarone 200 MG TAB PO SCH (08:30)
--- NOTE | 2017-11-19 15:15 | DIS ---
DATE OF ADMISSION: 11/14/2017 DATE OF DISCHARGE: 11/19/2017 DIAGNOSIS: Severe mitral valve regurgitation. PROCEDURES: Mitral valve repair with quadrangular resection and #34 Borges Flexible complete mitral ring. DESCRIPTION OF HOSPITAL STAY: Mr. Rosario was electively admitted for mitral valve repair. He did w ell with surgery. He had some sustained ventricular fibrillation in the operating room. This was re lieved with amiodarone. He has been kept on amiodarone postoperatively. The remainder of his hospit al stay has been spent recovering from surgery. At the time of discharge, ambulatory, tolerating reg ular diet, having good bowel and bladder function. Incisions are clean and dry without evidence of i nfection. DISCHARGE MEDICATIONS: Include, 1. Aspirin 325 mg every day. 2. Lipitor 20 mg at bedtime. 3. Metformin 500 mg at bedtime. 4. Amiodarone 400 mg b.i.d. 5. [place] 5/325 1-2 q.6 hours p.r.n. pain. FOLLOWUP: Follow up is with me in [address] Jain in a month.
== END 2017-11-19 11:43 | disposition home or self-care (01) | DRG 219 ==
LOC: SURG A 11-14 05:36 → CCU 11-14 12:52 → 2NO 11-17 11:35
PROVIDERS: ADMIT Thoracic Surgery (Cardiothoracic Vascular Surgery); ATTEND Thoracic Surgery (Cardiothoracic Vascular Surgery)
PROC: 02RG08Z Replacement of Mitral Valve with Zooplastic Tissue, Open Approach (ICD-10-PCS; principal; 2017-11-14)
PROC: 5A1221Z Performance of Cardiac Output, Continuous (ICD-10-PCS; 2017-11-14)
PROC: 02L70ZK Occlusion of Left Atrial Appendage, Open Approach (ICD-10-PCS; 2017-11-14)
PROC: 5A2204Z Restoration of Cardiac Rhythm, Single (ICD-10-PCS; 2017-11-14)
DX: I34.0 Nonrheumatic mitral (valve) insufficiency (principal); I49.01 Ventricular fibrillation; J96.01 Acute respiratory failure with hypoxia; J98.11 Atelectasis; I97.89 Other postprocedural complications and disorders of the circulatory system, not elsewhere classified; K59.00 Constipation, unspecified; I10 Essential (primary) hypertension; E78.5 Hyperlipidemia, unspecified; E11.9 Type 2 diabetes mellitus without complications; G47.33 Obstructive sleep apnea (adult) (pediatric); E78.00 Pure hypercholesterolemia, unspecified; Y83.8 Other surgical procedures as the cause of abnormal reaction of the patient, or of later complication, without mention of misadventure at the time of the procedure; Y71.3 Surgical instruments, materials and cardiovascular devices (including sutures) associated with adverse incidents; Y92.234 Operating room of hospital as the place of occurrence of the external cause
CPT/HCPCS: 36415; 36416; 36430; 71045; 80048; 82805; 85025; 85027; 85610; 85730; 86850; 86900; 86901; 93005; 93010; 93798; 94002; 94640; A4216; J0282; J1644; J1815; J1885; J2001; J2150; J2270; J2704; J2720; J3010; J3370; J3475; J3480; J3490; J7050; J7070; J7620; P9045; S0017; S0028

== ENCOUNTER 2017-11-13 11:34 | Outpatient (CLI) | payer OTHER ==
--- NOTE | 2017-11-13 15:41 | RAD ---
TWO VIEW CHEST: INDICATIONS: Preoperative evaluation. COMPARISON: 08/22/2017 FINDINGS: The lungs are clear. There is no effusion or pneumothorax. The cardiac silhouette is at the upper l imits of normal in size. No acute osseous pathology. IMPRESSION: 1. No focal consolidation. 2. Borderline sized cardiac silhouette. Correlate clinically. POS: [facility]
== END 2017-11-13 11:35 | disposition home or self-care (01) ==
LOC: LABBT 11:34
PROVIDERS: ATTEND Thoracic Surgery (Cardiothoracic Vascular Surgery)
DX: Z01.818 Encounter for other preprocedural examination (principal); I34.0 Nonrheumatic mitral (valve) insufficiency
CPT/HCPCS: 71046; 80048; 85027; 85610; 85730; 86850; 86900; 86901